=== PATIENT | female | born 1990 | race Caucasian/White ===

== ENCOUNTER 2021-01-24 01:51 | Emergency (ER) | payer OTHER ==
[~2021-01-24] VITALS: Ht 149.9 cm; Wt 63.5 kg
[~2021-01-24 01:51] MED LIST: COLACE 100MG C100 MG PO; IBU600 MG PO; LODINE CAP 300300 MG PO; ZOFRAN4 MG PO
[2021-01-24] MEDS ORDERED: ZOFRAN ODT 4 MG4 MG PO (04:02)
[2021-01-24] MEDS ORDERED: LODINE CAP 300300 MG PO (04:02)
[2021-01-24] MEDS ORDERED: PROVENTIL HFA6.7 GM INH (04:02)
== END 2021-01-24 06:00 | disposition home or self-care (01) ==
LOC: ER1 01:51
DX: U07.1 COVID-19 (principal); Z23 Encounter for immunization
CPT/HCPCS: 0240U; 71045; 93005; 99284; M0245

== ENCOUNTER 2021-04-29 00:30 | Emergency (ER) | payer OTHER ==
[~2021-04-29 00:30] MED LIST changes: +PROVENTIL HFA6.7 GM INH; +ZOFRAN ODT 4 MG4 MG PO
[2021-04-29 01:34] LABS: HEMOGLOBIN 13.7 gm/dl (12.3-15.3); RED BLOOD COUNT 4.99 M/UL (4.00-5.10); WHITE BLOOD COUNT 4.1 K/UL (4.5-11.0)
[2021-04-29 01:52] LABS: BUN/CREATININE RATIO 14 (0-10)
[2021-04-29] MEDS ORDERED: OMNICEF 300 MG300 MG PO (02:11)
[2021-04-29] MEDS ORDERED: ZOFRAN ODT 4 MG4 MG PO (02:11)
== END 2021-04-29 02:34 | disposition home or self-care (01) ==
LOC: ER1 00:30
PROVIDERS: Physician Assistant
DX: N39.0 Urinary tract infection, site not specified (principal)
CPT/HCPCS: 80053; 81001; 83690; 84703; 85025; 87086; 96374; 99284; J0696